=== PATIENT | male | born 1970 | race American Indian/Alaskan Native ===

== ENCOUNTER 2016-06-16 17:56 | Emergency (ER) | payer BC ==
[2016-06-16] MEDS ORDERED: TYLENOL #3 PO ONE (18:14)
[2016-06-16] MEDS ORDERED: NORCO 5/325 PO ONE (21:06)
[2016-06-16] MEDS ORDERED: MOTRIN PO ONE (21:07)
--- NOTE | 2016-06-16 21:09 | Emergency Department Report ---
ED Lower Extremity HPI - General Chief Complaint: Extremity Injury, Lower Stated Complaint: PAIN IN LEFT FOOT/POSS BROKEN Time Seen by Provider: 06/16/16 21:04 Source: patient Mode of arrival: Wheelchair Limitations: No Limitations - History of Present Illness Initial Comments: 46-year-old male past medical history none presents with complaint of pain in his left ankle heel and left lateral edge of foot. Patient states he was playing basketball jumped and fell on someone else's foot, inverted his left ankle. Occurred a few hours ago. Patient states he has difficulty walking due to pain. Patient pointing to a swelling left ankle, ankle visibly swollen. Patient states she also has pain at lateral edge of the left foot (near base of fifth metatarsal as per pts pointing to his foot). Denies any other injuries. MD Complaint: ankle injury, foot injury Onset/Timin -: hour(s) Injury: Ankle: Left, Foot: Left Type of Injury: inversion, other Place: street/outdoors (fall) Severity: moderate, severe Severity scale (0 -10): 8 Improves With: cold therapy, immobilization Worsens With: weight bearing, movement Context: fall, jumping Associated Symptoms: snap/pop sensation, swelling, unable to bear weight Treatments Prior to Arrival: cold therapy - Related Data Previous Rx's Medication Instructions Recorded Last Taken Type Naproxen [Naprosyn TAB] 500 mg PO BID PRN #20 tablet 06/16/16 Unknown Rx traMADol [Ultram 50 MG tab] 50 mg PO Q6HR PRN #20 tablet 06/16/16 Unknown Rx Allergies Allergy/AdvReac Type Severity Reaction Status Date / Time No Known Allergies Allergy Unverified 06/16/16 18:13 ED Review of Systems ROS: Stated complaint: PAIN IN LEFT FOOT/POSS BROKEN Other details as noted in HPI Constitutional: denies: chills, fever Eyes: denies: eye pain, eye discharge, vision change ENT: denies: ear pain, throat pain Respiratory: denies: cough, shortness of breath, wheezing Cardiovascular: denies: chest pain, palpitations Endocrine: no symptoms reported Gastrointestinal: denies: abdominal pain, nausea, diarrhea Genitourinary: denies: urgency, dysuria Musculoskeletal: denies: back pain, joint swelling, arthralgia Skin: denies: rash, lesions Neurological: denies: headache, weakness, paresthesias Psychiatric: denies: anxiety, depression Hematological/Lymphatic: denies: easy bleeding, easy bruising ED Past Medical Hx - Past Medical History Previous Medical History?: No - Surgical History Past Surgical History?: No - Social History Smoking Status: Light Tobacco Smoker Substance Use Type: Alcohol - Medications Home Medications: Home Medications Medication Instructions Recorded Confirmed Last Taken Type Naproxen [Naprosyn TAB] 500 mg PO BID PRN #20 tablet 06/16/16 Unknown Rx traMADol [Ultram 50 MG tab] 50 mg PO Q6HR PRN #20 tablet 06/16/16 Unknown Rx ED Physical Exam - General Limitations: No Limitations General appearance: alert, in no apparent distress - Head Head exam: Present: atraumatic, normocephalic - Eye Eye exam: Present: normal appearance, PERRL, EOMI - ENT ENT exam: Present: mucous membranes moist - Neck Neck exam: Present: normal inspection - Respiratory Respiratory exam: Present: normal lung sounds bilaterally. Absent: respiratory distress - Cardiovascular Cardiovascular Exam: Present: regular rate, normal rhythm. Absent: systolic murmur, diastolic murmur, rubs, gallop - GI/Abdominal GI/Abdominal exam: Present: soft, normal bowel sounds - Rectal Rectal exam: Present: deferred - Extremities Exam Extremities exam: Present: normal inspection - Expanded Lower Extremity Exam Left Upper Leg exam: Present: normal inspection, full ROM Knee exam: Present: normal inspection, full ROM Lower Leg exam: Present: normal inspection, full ROM Ankle exam: Present: tenderness, swelling, ecchymosis Foot/Toe exam: Present: tenderness (tenderness lateral aspect mid foot), swelling, ecchymosis Neuro vascular tendon exam: Present: no vascular compromise Gait: Positive: unable to bear weight 1 - Pain on palpation this region, visible swelling - Back Exam Back exam: Present: normal inspection - Neurological Exam Neurological exam: Present: alert, oriented X3, CN II-XII intact, abnormal gait - Psychiatric Psychiatric exam: Present: normal affect, agitated - Skin Skin exam: Present: warm, dry, intact, normal color. Absent: rash ED Course Vital Signs 06/16/16 18:05 Temperature 98.5 F Pulse Rate 96 H Respiratory 24 Rate Blood Pressure 132/82 O2 Sat by Pulse 100 Oximetry ED Lower Extremity MDM - Medical Decision Making A/P: Inversion ankle injury, ankle sprain 1-images reviewed with Dr. Downey, no evidence of acute fracture on images of ankle calcaneus or foot 2-patient placed in zoya wrap left ankel, bulky velázquez wrap, left ankle stirrup splint with orthopedic shoe, I provided him with crutches 3-naproxen, tramadol when necessary, RICE therapy 4-I advised patient to follow up with orthopedics at provided him with referral information. I explained to patient that he may have experienced small tendon injury and ankle due to result of inversion he should follow up with orthopedics as soon as possible. Critical care attestation.: If time is entered above; I have spent that time in minutes in the direct care of this critically ill patient, excluding procedure time. ED Disposition Clinical Impression: Left ankle sprain Qualifiers: Encounter type: initial encounter Involved ligament of ankle: tibiofibular ligament Qualified Code(s): S93.432A - Sprain of tibiofibular ligament of left ankle, initial encounter Disposition: DISCHARGED TO HOME OR SELFCARE Is pt being admited?: No Does the pt Need Aspirin: No Condition: Stable Instructions: Ankle Sprain (ED), Ankle Stirrup Splint (ED), Ankle Exercises ( GEN), RICE Therapy (ED) Prescriptions: Naproxen [Naprosyn TAB] 500 mg PO BID PRN #20 tablet PRN Reason: Pain traMADol [Ultram 50 MG tab] 50 mg PO Q6HR PRN #20 tablet PRN Reason: Pain Referrals: PRIMARY MD BOWEN [Primary Care Provider] - 3-5 Days [facility] [place] [Outside] - 3-5 Days BHARAT VALADEZ MD [Staff Physician] - 3-5 Days Forms: Work/School Release Form(ED), Accompanied Note Time of Disposition: 23:27
--- NOTE | 2016-06-16 23:43 | XRay Report ---
FINAL REPORT EXAM: XR CALCANEOUS 2 LT HISTORY: s/p fall TECHNIQUE: Frontal and lateral views of left calcaneus. PRIORS: None. FINDINGS: No apparent fracture, dislocation or obvious osseous destruction. Soft tissues grossly unremarkable. IMPRESSION: 1. No acute osseous abnormality.
[2016-06-16 23:47] VITALS: BP 155/96
--- NOTE | 2016-06-16 23:58 | XRay Report ---
FINAL REPORT EXAM: XR FOOT 3 LT HISTORY: FALL; LEFT FOOT PAIN TECHNIQUE: 3 views of left foot. PRIORS: None. FINDINGS: Moderate hallux valgus and mild soft tissue bunion formation over medial eminence of great toe metatarsal head. Joint spaces maintained. No apparent fracture or dislocation. Soft tissues grossly unremarkable. IMPRESSION: 1. No acute osseous abnormality.
--- NOTE | 2016-06-17 | XRay Report ---
FINAL REPORT EXAM: XR ANKLE 2V LT HISTORY: Injury with edema pain TECHNIQUE: 2 views of left ankle. PRIORS: None. FINDINGS: Joint spaces maintained. No apparent fracture or dislocation.Very mild, lateral soft tissue edema and possible effusion projects over the anterior tibiotalar joint. IMPRESSION: 1. No acute osseous abnormality. 2. Soft tissue edema and possible tibiotalar joint effusion.
== END 2016-06-16 23:29 | disposition home or self-care (01) ==
LOC: EDBD → ED 17:56
DX: S93.432A Sprain of tibiofibular ligament of left ankle, initial encounter (principal); Z72.0 Tobacco use; W01.10XA Fall on same level from slipping, tripping and stumbling with subsequent striking against unspecified object, initial encounter; Y93.67 Activity, basketball; Y99.9 Unspecified external cause status; Y92.39 Other specified sports and athletic area as the place of occurrence of the external cause

== ENCOUNTER 2017-03-28 12:18 | Emergency (ER) | payer BC ==
[2017-03-28 12:32] VITALS: BP 141/87
--- NOTE | 2017-03-28 16:02 | Emergency Department Report ---
ED Rash HPI - HPI Chief Complaint: Skin Rash Stated Complaint: RASH Time Seen by Provider: 03/28/17 15:36 Duration: 2 Days Location: Head, Neck, Chest Suspected Cause: Unknown Rash Symptoms: No Itching, No Facial Swelling, No Tongue/Oral Swelling, No Breathing Difficulties, No Choking Sensation, No Wheezing/Dyspnea, No Peeling, No Blistering, No Fever, No Lightheaded, No Malaise, No Myalgias Severity: moderate (tingling pain 2/10) Other History: Patient reports that E has rash to the left back of his head, left side of his neck and left anterior chest and back area. He denies using any new products to include perfume, soap, medication or food. Denies any itching. It stated on triage note this patient has been having symptoms for one week but patient said that it started on Wednesday which was 2 days ago. He reports that is painful at 20/10 and tingly. Denies any pain proceeded rash outbreak. Denies any respiratory symptoms or fever or chills. Denies any difficulty swallowing or swelling of tongue or neck. Tetanus vaccine is up-to- date. Patient had chickenpox as a child. ED Review of Systems ROS: Stated complaint: RASH Other details as noted in HPI Comment: All other systems reviewed and negative Constitutional: no symptoms reported ENT: denies: throat pain, congestion Respiratory: no symptoms reported Cardiovascular: denies: chest pain, palpitations, dyspnea on exertion, orthopnea , edema, syncope, paroxysmal nocturnal dyspnea Musculoskeletal: denies: back pain, joint swelling, arthralgia, myalgia Skin: rash. denies: pruritus Neurological: denies: headache, weakness, numbness, paresthesias, confusion, abnormal gait, vertigo ED Past Medical Hx - Past Medical History Previous Medical History?: No - Surgical History Past Surgical History?: No - Family History Family history: no significant - Social History Smoking Status: Current Every Day Smoker Substance Use Type: Alcohol - Medications Home Medications: Home Medications Medication Instructions Recorded Confirmed Last Taken Type Naproxen [Naprosyn TAB] 500 mg PO BID PRN #20 tablet 06/16/16 Unknown Rx traMADol [Ultram 50 MG tab] 50 mg PO Q6HR PRN #20 tablet 06/16/16 Unknown Rx Acyclovir 800 mg PO Q8H #21 tablet 03/28/17 Unknown Rx Ibuprofen [Motrin] 600 mg PO Q8H PRN #15 tablet 03/28/17 Unknown Rx Rash Exam - Exam General: Vital signs noted. No distress. Alert and acting appropriately. This is a 47-year-old male well-nourished well-developed in no acute distress HEENT: No Periorbital Edema, No Conjuctival Injection, No Chemosis, No Perioral Edema, No Tongue Edema, No Uvular Edema, No Compromised Airway, No Drooling Lungs: Yes Good Air Exchange, No Wheezes, No Ronchi, No Stridor, No Cough, No Labored Respirations, No Retractions, No Use of Accessory Muscles, No Other Abnormal Lung Sounds Heart: Yes Regular, No Murmur Skin: Yes Erythema (erythema vesicular, group rash noted in clusters to posterior left neck, left occipital area, left shoulder, left anterior and posterior thorax.), No Urticarial Rash, No Maculopapular Rash, No Morbilliform rash, No Bulla(e), No Excoriations, No Weeping, No Tenderness, No Edema, No Encrustations, No Other Other: Positive: Abdomen Normal, Neurologic Normal, Musculoskeletal Normal ED Course Vital Signs 03/28/17 12:29 Temperature 98.1 F Pulse Rate 69 Respiratory 14 Rate Blood Pressure 141/87 O2 Sat by Pulse 100 Oximetry - Reevaluation(s) Reevaluation #1: 03/28/17 16:43 stable throughout ED stay ED Medical Decision Making - Medical Decision Making ED course: This is a 47-year-old male well-nourished well-developed in no acute distress. Patient's ear for complaint of rash that is painful and described as stinging and burning in times today. Physical findings for herpes zoster. I explained to patient diagnosis and treatment plan and he voiced understanding. I also explained to patient that this rash is contagious so he needs to practice proper hand hygiene and to avoid being around individual, elderly individual and children less than 8 years old. Patient denies any medical problems except for bronchitis. He denies any autoimmune problems. I discussed the patient that he'll need to follow-up with a information strategist in 2-3 days. Discharged home in stable condition with prescription for Motrin and acyclovir Critical care attestation.: If time is entered above; I have spent that time in minutes in the direct care of this critically ill patient, excluding procedure time. ED Disposition Clinical Impression: Shingles rash Qualifiers: Herpes zoster complications: without complications Qualified Code(s): B02.9 - Zoster without complications Disposition: TO HOME OR SELFCARE Is pt being admited?: No Does the pt Need Aspirin: No Condition: Stable Instructions: Herpes Zoster (ED) Additional Instructions: You considered contagious until your rash are dried and redness is subsided Keep affected areas clean and dry Take medication as prescribed Prescriptions: Acyclovir 800 mg PO Q8H #21 tablet Ibuprofen [Motrin] 600 mg PO Q8H PRN #15 tablet PRN Reason: Pain Referrals: [facility] [Outside] - 2-3 Days PRIMARY CAREMD [Primary Care Provider] - 2-3 Days RONA ESCAMILLA MD [Staff Physician] - 2-3 Days Forms: Work/School Release Form(ED)
== END 2017-03-28 16:00 | disposition home or self-care (01) ==
LOC: ED 12:18
DX: B02.9 Zoster without complications (principal); F17.200 Nicotine dependence, unspecified, uncomplicated
CPT/HCPCS: 99282

== ENCOUNTER 2021-05-24 01:06 | Emergency (ER) | payer SELFPAY ==
--- NOTE | 2021-05-24 06:52 | Emergency Department Report ---
Minor Respiratory - HPI Chief Complaint: Upper Respiratory Infection Stated Complaint: SINUS INFECTION Time Seen by Provider: 05/24/21 06:39 Duration: 2 weeks Pain Location: Facial Severity: moderate Minor Respiratory: Yes Rhinorrhea, Yes Able to Tolerate Fluids, No Sore Throat, No Ear Pain, No Cough, No Sick Contacts, No Hemoptysis, No Chest Pain, No Shortness of Breath, No Fever Other History: Chief complaint: "Tension around my eye, my eye is running". HPI: This is a 51-year-old male with history of tobacco dependence who presents with tension around his left eye facial pressure nasal congestion for 2 weeks. Moderately severe symptoms. He has nasal congestion and eye discharge. Facial pressure in his left cheek and left forehead. No fever. No cough. Constant tension pressure sensation. Worse with palpation of his forehead and cheek on the left side. ED Review of Systems ROS: Stated complaint: SINUS INFECTION Other details as noted in HPI Constitutional: denies: fever, malaise ENT: dental pain, congestion. denies: throat pain Respiratory: denies: cough, shortness of breath Cardiovascular: denies: chest pain Gastrointestinal: denies: abdominal pain, nausea, vomiting ED Past Medical Hx - Past Medical History Previous Medical History?: No - Surgical History Past Surgical History?: No - Social History Smoking Status: Current Every Day Smoker Substance Use Type: Alcohol - Medications Home Medications: Home Medications Medication Instructions Recorded Confirmed Last Taken Type Naproxen [Naprosyn TAB] 500 mg PO BID PRN #20 tablet 06/16/16 Unknown Rx traMADoL [Ultram 50 MG tab] 50 mg PO Q6HR PRN #20 tablet 06/16/16 Unknown Rx Acyclovir 800 mg PO Q8H #21 tablet 03/28/17 Unknown Rx Ibuprofen [Motrin] 600 mg PO Q8H PRN #15 tablet 03/28/17 Unknown Rx Amoxicillin/Potassium Clav 1 each PO BID 10 Days #20 tablet 05/24/21 Unknown Rx [Augmentin 875-125 Tablet] Loratadine 10 mg PO DAILY 10 Days #10 capsule 05/24/21 Unknown Rx Minor Respiratory Exam - Exam General: Vital signs noted. No distress. Alert and acting appropriately. Left maxillary, left forehead tenderness upon palpation HEENT: Yes Moist Mucous Membranes, Yes Rhinorrhea, Yes Conjuctival Injection (Mild left eye conjunctival injection), No Pharyngeal Erythema, No Pharyngeal Exudates Lungs: Yes Good Air Exchange, No Wheezes, No Ronchi, No Stridor Heart: Yes Regular, No Murmur Neurologic: Alert and oriented, no deficits. Musculoskeletal: Unremarkable. ED Course Vital Signs 05/24/21 01:12 Temperature 98.0 F Pulse Rate 93 H Respiratory 18 Rate Blood Pressure 144/92 O2 Sat by Pulse 100 Oximetry ED Medical Decision Making - Medical Decision Making Acute sinusitis: Due to duration of symptoms and severity antibiotics are indicated. Augmentin 10-day prescription provided. Loratadine also prescribed Critical care attestation.: If time is entered above; I have spent that time in minutes in the direct care of this critically ill patient, excluding procedure time. ED Disposition Clinical Impression: Acute sinusitis Disposition: HOME / SELF CARE / HOMELESS Is pt being admited?: No Does the pt Need Aspirin: No Condition: Stable Instructions: Sinusitis, Adult, [id number] Prescriptions: Amoxicillin/Potassium Clav [Augmentin 875-125 Tablet] 1 each PO BID 10 Days #20 tablet Loratadine 10 mg PO DAILY 10 Days #10 capsule Referrals: ANDREINA BRIDGES MD [Staff Physician] - as needed
[2021-05-24 07:10] VITALS: BP 138/88
== END 2021-05-24 07:10 | disposition home or self-care (01) ==
LOC: ED 01:06
DX: J01.90 Acute sinusitis, unspecified (principal)
CPT/HCPCS: 99282

== ENCOUNTER 2021-07-15 13:25 | Inpatient (IN) | payer SELFPAY ==
[2021-07-15] MEDS ORDERED: ONDANSETRON 4 MG/2 ML INJ IV ONE (14:02)
[2021-07-15] MEDS ORDERED: CLINDAMYCIN 600 MG/50 mL 600 MG/50 ML BAG IV ONE (14:03)
--- NOTE | 2021-07-15 14:04 | Emergency Department Report ---
ED General Adult HPI - General Chief complaint: Alcohol Stated complaint: GENERAL SICKNESS Time Seen by Provider: 07/15/21 13:37 Source: patient, EMS Mode of arrival: Ambulatory Limitations: No Limitations - History of Present Illness Initial comments: 51-year-old male with no significant past medical history presents to the hospital complaining of generalized weakness and difficulty ambulating for the past week and a half. Patient also complains of difficulty breathing secondary to nasal congestion and feeling stopped up with pain to the left side. Patient also has poor dentition and tooth ache resulting in decreased p.o. intake. He also has some nausea and pain with p.o. intake and suspects he is dehydrated. He denies vomiting, fever, cough, chest congestion or shortness of breath. He also has a right red eye for the past 1 month and saw an laborer tin can 1 week ago but does not have a specific diagnosis. Patient states he stopped drinking 2 months ago and is not currently drinking alcohol. He is not currently taking any medications. EMS reports a blood glucose of 65 and a heart rate of 136 at his house prior to arrival - Related Data Previous Rx's Medication Instructions Recorded Last Taken Type Naproxen [Naprosyn TAB] 500 mg PO BID PRN #20 tablet 06/16/16 Unknown Rx traMADoL [Ultram 50 MG tab] 50 mg PO Q6HR PRN #20 tablet 06/16/16 Unknown Rx Acyclovir 800 mg PO Q8H #21 tablet 03/28/17 Unknown Rx Ibuprofen [Motrin] 600 mg PO Q8H PRN #15 tablet 03/28/17 Unknown Rx Amoxicillin/Potassium Clav 1 each PO BID 10 Days #20 tablet 05/24/21 Unknown Rx [Augmentin 875-125 Tablet] Loratadine 10 mg PO DAILY 10 Days #10 capsule 05/24/21 Unknown Rx Allergies Allergy/AdvReac Type Severity Reaction Status Date / Time No Known Allergies Allergy Unverified 06/16/16 18:13 ED Review of Systems ROS: Stated complaint: GENERAL SICKNESS Other details as noted in HPI Comment: All other systems reviewed and negative ED Past Medical Hx - Social History Smoking Status: Current Every Day Smoker Substance Use Type: Alcohol - Medications Home Medications: Home Medications Medication Instructions Recorded Confirmed Last Taken Type Naproxen [Naprosyn TAB] 500 mg PO BID PRN #20 tablet 06/16/16 Unknown Rx traMADoL [Ultram 50 MG tab] 50 mg PO Q6HR PRN #20 tablet 06/16/16 Unknown Rx Acyclovir 800 mg PO Q8H #21 tablet 03/28/17 Unknown Rx Ibuprofen [Motrin] 600 mg PO Q8H PRN #15 tablet 03/28/17 Unknown Rx Amoxicillin/Potassium Clav 1 each PO BID 10 Days #20 tablet 05/24/21 Unknown Rx [Augmentin 875-125 Tablet] Loratadine 10 mg PO DAILY 10 Days #10 capsule 05/24/21 Unknown Rx ED Physical Exam - General Limitations: No Limitations - Other Other exam information: General: No acute distress Head: Atraumatic Eyes: Right conjunctival redness with reactive and equal pupils. Extraocular movements intact ENT: Poor dentition with dental caries and gum infection to left mandibular gingiva Neck: Normal appearance, no midline tenderness Chest: Clear to auscultation bilaterally CV: Tachycardic in the 120s to 130s, regular rhythm Abdomen: Soft, normal bowel sounds, nontender, nondistended, no rebound or g uarding Back: Normal inspection Extremity: Normal inspection, full range of motion Neuro: Alert O x 3, no facial asymmetry, speech clear, no gross motor sensory deficit Psych: Appropriate behavior Skin: No rash ED Course Vital Signs 07/15/21 07/15/21 07/15/21 13:29 17:16 17:31 Temperature 98 F Pulse Rate 149 H 133 H Respiratory 16 Rate Blood Pressure Blood Pressure 123/93 [Left] O2 Sat by Pulse 100 98 97 Oximetry 07/15/21 07/15/21 07/15/21 17:45 18:01 18:15 Temperature Pulse Rate 133 H 154 H 136 H Respiratory 15 23 16 Rate Blood Pressure Blood Pressure [Left] O2 Sat by Pulse 97 96 99 Oximetry 07/15/21 07/15/21 07/15/21 18:31 18:45 19:01 Temperature Pulse Rate 139 H 138 H 147 H Respiratory 15 18 14 Rate Blood Pressure Blood Pressure [Left] O2 Sat by Pulse 99 98 98 Oximetry 07/15/21 07/15/21 07/15/21 19:15 19:31 19:37 Temperature 102.9 F H Pulse Rate 141 H 138 H Respiratory 16 16 Rate Blood Pressure 109/70 Blood Pressure [Left] O2 Sat by Pulse 97 98 Oximetry ED Medical Decision Making - Lab Data Result diagrams: 07/15/21 15:09 07/15/21 15:09 Lab Results 07/15/21 07/15/21 07/15/21 Range/Units 15:09 15:09 15:09 WBC 7.1 (4.5-11.0) K/mm3 RBC 4.10 (3.65-5.03) M/mm3 Hgb 12.7 (11.8-15.2) gm/dl Hct 38.0 (35.5-45.6) % MCV 93 (84-94) fl MCH 31 (28-32) pg MCHC 33 (32-34) % RDW 12.6 L (13.2-15.2) % Plt Count 430 (140-440) K/mm3 Lymph % (Auto) 10.8 L (13.4-35.0) % [place] % (Auto) 4.0 (0.0-7.3) % Eos % (Auto) 0.5 (0.0-4.3) % Baso % (Auto) 0.6 (0.0-1.8) % Lymph # (Auto) 0.8 L (1.2-5.4) K/mm3 [place] # (Auto) 0.3 (0.0-0.8) K/mm3 Eos # (Auto) 0.0 (0.0-0.4) K/mm3 Baso # (Auto) 0.0 (0.0-0.1) K/mm3 Seg Neutrophils % 84.1 H (40.0-70.0) % Seg Neutrophils # 6.0 (1.8-7.7) K/mm3 Sodium 130 L (137-145) mmol/L Potassium 5.7 H (3.6-5.0) mmol/L Chloride 92.2 L (98-107) mmol/L Carbon Dioxide 24 (22-30) mmol/L Anion Gap 20 mmol/L BUN 30 H (9-20) mg/dL Creatinine 1.2 (0.8-1.3) mg/dL Estimated GFR > 60 ml/min BUN/Creatinine Ratio 25 % Glucose 82 (75-100) mg/dL POC Glucose (70-105) mg/dL Lactic Acid (0.7-2.0) mmol/L Calcium 8.7 (8.4-10.2) mg/dL Magnesium 2.40 H (1.7-2.3) mg/dL Total Bilirubin 0.20 (0.1-1.2) mg/dL AST 43 H (5-40) units/L ALT 15 (7-56) units/L Alkaline Phosphatase 77 (35-129) units/L Total Protein 8.1 (6.3-8.2) g/dL Albumin 3.1 L (3.9-5) g/dL Albumin/Globulin Ratio 0.6 % Lipase 27 (13-60) units/L TSH (0.270-4.200) mlU/mL Free T4 (0.76-1.46) ng/dL Urine Color (Yellow) Urine Turbidity (Clear) Urine pH (5.0-7.0) Ur Specific [place] (1.003-1.030) Urine Protein (Negative) mg/dL Urine Glucose (UA) (Negative) mg/dL Urine Ketones (Negative) mg/dL Urine Blood (Negative) Urine Nitrite (Negative) Ur Reducing Substances Urine Bilirubin (Negative) Urine Ictotest Urine Urobilinogen (<2.0) mg/dL Ur Leukocyte Esterase (Negative) Urine WBC (Auto) (0.0-6.0) /HPF Urine RBC (Auto) (0.0-6.0) /HPF Urine Mucus /HPF Urine Opiates Screen Urine Methadone Screen Ur Barbiturates Screen Ur Phencyclidine Scrn Ur Amphetamines Screen U Benzodiazepines Scrn Urine Cocaine Screen U Marijuana (THC) Screen Drugs of Abuse Note Plasma/Serum Alcohol < 0.01 (0-0.07) % 07/15/21 07/15/21 07/15/21 Range/Units 15:09 19:35 19:36 WBC (4.5-11.0) K/mm3 RBC (3.65-5.03) M/mm3 Hgb (11.8-15.2) gm/dl Hct (35.5-45.6) % MCV (84-94) fl MCH (28-32) pg MCHC (32-34) % RDW (13.2-15.2) % Plt Count (140-440) K/mm3 Lymph % (Auto) (13.4-35.0) % [place] % (Auto) (0.0-7.3) % Eos % (Auto) (0.0-4.3) % Baso % (Auto) (0.0-1.8) % Lymph # (Auto) (1.2-5.4) K/mm3 [place] # (Auto) (0.0-0.8) K/mm3 Eos # (Auto) (0.0-0.4) K/mm3 Baso # (Auto) (0.0-0.1) K/mm3 Seg Neutrophils % (40.0-70.0) % Seg Neutrophils # (1.8-7.7) K/mm3 Sodium (137-145) mmol/L Potassium (3.6-5.0) mmol/L Chloride (98-107) mmol/L Carbon Dioxide (22-30) mmol/L Anion Gap mmol/L BUN (9-20) mg/dL Creatinine (0.8-1.3) mg/dL Estimated GFR ml/min BUN/Creatinine Ratio % Glucose (75-100) mg/dL POC Glucose (70-105) mg/dL Lactic Acid 1.40 (0.7-2.0) mmol/L Calcium (8.4-10.2) mg/dL Magnesium (1.7-2.3) mg/dL Total Bilirubin (0.1-1.2) mg/dL AST (5-40) units/L ALT (7-56) units/L Alkaline Phosphatase (35-129) units/L Total Protein (6.3-8.2) g/dL Albumin (3.9-5) g/dL Albumin/Globulin Ratio % Lipase (13-60) units/L TSH 1.090 (0.270-4.200) mlU/mL Free T4 0.98 (0.76-1.46) ng/dL Urine Color Yellow (Yellow) Urine Turbidity Clear (Clear) Urine pH 6.0 (5.0-7.0) Ur Specific [place] 1.010 (1.003-1.030) Urine Protein 30 mg/dl (Negative) mg/dL Urine Glucose (UA) Negative (Negative) mg/dL Urine Ketones Negative (Negative) mg/dL Urine Blood Negative (Negative) Urine Nitrite Negative (Negative) Ur Reducing Substances Not Reportable Urine Bilirubin Negative (Negative) Urine Ictotest Not Reportable Urine Urobilinogen < 2.0 (<2.0) mg/dL Ur Leukocyte Esterase Negative (Negative) Urine WBC (Auto) 9.0 H (0.0-6.0) /HPF Urine RBC (Auto) 3.0 (0.0-6.0) /HPF Urine Mucus Few /HPF Urine Opiates Screen Urine Methadone Screen Ur Barbiturates Screen Ur Phencyclidine Scrn Ur Amphetamines Screen U Benzodiazepines Scrn Urine Cocaine Screen U Marijuana (THC) Screen Drugs of Abuse Note Plasma/Serum Alcohol (0-0.07) % 07/15/21 07/15/21 Range/Units 19:36 19:41 WBC (4.5-11.0) K/mm3 RBC (3.65-5.03) M/mm3 Hgb (11.8-15.2) gm/dl Hct (35.5-45.6) % MCV (84-94) fl MCH (28-32) pg MCHC (32-34) % RDW (13.2-15.2) % Plt Count (140-440) K/mm3 Lymph % (Auto) (13.4-35.0) % [place] % (Auto) (0.0-7.3) % Eos % (Auto) (0.0-4.3) % Baso % (Auto) (0.0-1.8) % Lymph # (Auto) (1.2-5.4) K/mm3 [place] # (Auto) (0.0-0.8) K/mm3 Eos # (Auto) (0.0-0.4) K/mm3 Baso # (Auto) (0.0-0.1) K/mm3 Seg Neutrophils % (40.0-70.0) % Seg Neutrophils # (1.8-7.7) K/mm3 Sodium (137-145) mmol/L Potassium (3.6-5.0) mmol/L Chloride (98-107) mmol/L Carbon Dioxide (22-30) mmol/L Anion Gap mmol/L BUN (9-20) mg/dL Creatinine (0.8-1.3) mg/dL Estimated GFR ml/min BUN/Creatinine Ratio % Glucose (75-100) mg/dL POC Glucose 66 L (70-105) mg/dL Lactic Acid (0.7-2.0) mmol/L Calcium (8.4-10.2) mg/dL Magnesium (1.7-2.3) mg/dL Total Bilirubin (0.1-1.2) mg/dL AST (5-40) units/L ALT (7-56) units/L Alkaline Phosphatase (35-129) units/L Total Protein (6.3-8.2) g/dL Albumin (3.9-5) g/dL Albumin/Globulin Ratio % Lipase (13-60) units/L TSH (0.270-4.200) mlU/mL Free T4 (0.76-1.46) ng/dL Urine Color (Yellow) Urine Turbidity (Clear) Urine pH (5.0-7.0) Ur Specific [place] (1.003-1.030) Urine Protein (Negative) mg/dL Urine Glucose (UA) (Negative) mg/dL Urine Ketones (Negative) mg/dL Urine Blood (Negative) Urine Nitrite (Negative) Ur Reducing Substances Urine Bilirubin (Negative) Urine Ictotest Urine Urobilinogen (<2.0) mg/dL Ur Leukocyte Esterase (Negative) Urine WBC (Auto) (0.0-6.0) /HPF Urine RBC (Auto) (0.0-6.0) /HPF Urine Mucus /HPF Urine Opiates Screen Negative Urine Methadone Screen Negative Ur Barbiturates Screen Negative Ur Phencyclidine Scrn Negative Ur Amphetamines Screen Negative U Benzodiazepines Scrn Negative Urine Cocaine Screen Negative U Marijuana (THC) Screen Negative Drugs of Abuse Note Disclamer Plasma/Serum Alcohol (0-0.07) % - EKG Data -: EKG Interpreted by Ut EKG shows normal: sinus rhythm, ST-T waves (NO STEMI) Rate: tachycardia (136) - Radiology Data Radiology results: report reviewed CHEST 1 VIEW 07/15/2021 1:42 PM INDICATION / CLINICAL INFORMATION: tachycarida, possible covid exposure. COMPARISON: None available. FINDINGS: SUPPORT DEVICES: None. HEART / MEDIASTINUM: No significant abnormality. LUNGS / PLEURA: No significant pulmonary or pleural abnormality. No pneumothorax. ADDITIONAL FINDINGS: No significant additional findings. IMPRESSION: 1. No acute findings. - Medical Decision Making 51-year-old male presents to the hospital with tachycardia initially without fever. Dehydration suspected given BUN to creatinine ratio. Despite aggressive IV fluid hydration patient remained tachycardic and subsequently developed a fever. Chest x-ray unremarkable. Patient's abdomen is nontender and soft. Patient does appear to have a dental infection. Patient has significant tachycardia out of proportion with fever. Thyroid is normal. Patient will be admitted to hospital service for further work-up and evaluation. My hyperkalemia noted and patient bided p.o. juice for mild hyperglycemia Patient is nontoxic-appearing, heart rate had improved with ED treatment. Silvia ent mid to the hospital service for further treatment and evaluation Critical Care Time: No Critical care attestation.: If time is entered above; I have spent that time in minutes in the direct care of this critically ill patient, excluding procedure time. ED Disposition Clinical Impression: Sepsis, Sinus tachycardia, Dental infection, Dehydration Disposition: ADMITTED INPATIENT Is pt being admited?: Yes Does the pt Need Aspirin: No Condition: Stable Time of Disposition: 21:46
[2021-07-15] MEDS ORDERED: SODIUM CHLORIDE 0.9% 1000 ML 1,000 ML IV ONE ×2 (14:06→16:31)
--- NOTE | 2021-07-15 14:54 | XRay Report ---
CHEST 1 VIEW 07/15/2021 1:42 PM INDICATION / CLINICAL INFORMATION: tachycarida, possible covid exposure. COMPARISON: None available. FINDINGS: SUPPORT DEVICES: None. HEART / MEDIASTINUM: No significant abnormality. LUNGS / PLEURA: No significant pulmonary or pleural abnormality. No pneumothorax. ADDITIONAL FINDINGS: No significant additional findings. IMPRESSION: 1. No acute findings. Signer Name: Leonard Schwartz MD Signed: 07/15/2021 2:50 PM Workstation Name: [facility]
[2021-07-15] MEDS ORDERED: D5W/0.9% NACL 1,000 ML IV SCH ×2 (15:00→23:00)
[2021-07-15 15:21] LABS: Basophils % (Auto) 0.6 % (0.0-1.8); Eosinophils % (Auto) 0.5 % (0.0-4.3); Hemoglobin 12.7 gm/dl (11.8-15.2); Lymphocytes # (Auto) 0.8 K/mm3 (1.2-5.4); Lymphocytes % (Auto) 10.8 % (13.4-35.0); Mean Corpuscular HGB Conc 33 % (32-34); Mean Corpuscular Volume 93 fl (84-94); Monocytes # (Auto) 0.3 K/mm3 (0.0-0.8); Platelet Count 430 K/mm3 (140-440); Red Cell Distribution Width 12.6 % (13.2-15.2)
[2021-07-15 15:50] LABS: Free T4 (Free Thyroxine) 0.98 ng/dL (0.76-1.46)
[2021-07-15 16:07] LABS: Alanine Aminotransferase 15 units/L (7-56); Albumin 3.1 g/dL (3.9-5); BUN/Creatinine Ratio 25; Blood Urea Nitrogen 30 mg/dL (9-20)
[2021-07-15 16:21] LABS: Calcium 8.7 mg/dL (8.4-10.2); Hemolysis Index 13
[2021-07-15] MEDS ORDERED: ACETAMINOPHEN 500 MG TAB PO ONE ×2 (19:27→21:34)
[2021-07-15 20:36] LABS: Amphetamine Screen,Urine Negative; Benzodiazepines Screen,Urine Negative; Cannabinoid Screen,Urine Negative; Cocaine Screen,Urine Negative; Methadone Screen,Urine Negative; Opiate Screen,Urine Negative
[2021-07-15 20:57] LABS: Mucus,Urine FEW /HPF
[2021-07-15 20:59] LABS: Bilirubin,Urine Negative (Negative); Blood,Urine Negative (Negative); Color,Urine Yellow (Yellow); Urobilinogen,Urine < 2.0 mg/dL (<2.0)
[2021-07-15] MEDS ORDERED: HYDROmorphone 1 MG/1 ML INJ IV PRN (22:04)
[2021-07-15] MEDS ORDERED: ONDANSETRON 4 MG/2 ML INJ IV PRN (22:04)
[2021-07-15] MEDS ORDERED: ACETAMINOPHEN 325 MG TAB PO PRN (22:04)
[2021-07-15] MEDS ORDERED: ALBUTEROL 2.5 MG/3 ML NEBU IH PRN (22:04)
[2021-07-15] MEDS ORDERED: MORPHINE 2 MG/1 ML INJ IV PRN (22:04)
--- NOTE | 2021-07-15 22:15 | History and Physical Report ---
History of Present Illness Date of examination: 07/15/21 Date of admission: 07/15/21 Chief complaint: Fever Weakness History of present illness: 51-year-old male with history of tobacco abuse and alcohol abuse was brought to the emergency room because of generalized weakness and difficulty ambulating for the past week and a half. Patient also complains of difficulty breathing secondary to nasal congestion . Patient also has poor dentition and tooth ache resulting in decreased p.o. intake. He also has some nausea and pain with p.o. intake and suspects he is dehydrated. He denies vomiting, fever, cough, chest congestion or shortness of breath. He also has a right red eye for the past 1 month and saw an assembler wire mesh gate 1 week ago but does not have a specific d iagnosis. Patient states he stopped drinking 2 months ago and is not currently drinking alcohol. He is not currently taking any medications. EMS reports a blood glucose of 65 and a heart rate of 136 at his house prior to arrival In the emergency room patient is found to have fever of 102.9, BUN up 30 creatinine 1.2, lactic acid 1.40 potassium 5.7 chest x-ray shows no acute finding.Dehydration suspected given BUN to creatinine ratio. Despite aggressive IV fluid hydration patient remained tachycardic and subsequently developed a fever. Chest x-ray unremarkable. Patient's abdomen is nontender and soft. Patient does appear to have a dental infection. Patient has significant tachycardia out of proportion with fever. Thyroid is normal. Patient will be admitted to hospital service for further work-up and evaluation. Past History Past Medical History: other (Tobacco abuse alcohol abuse) Medications and Allergies Allergies Allergy/AdvReac Type Severity Reaction Status Date / Time No Known Allergies Allergy Unverified 06/16/16 18:13 Home Medications Medication Instructions Recorded Confirmed Last Taken Type Naproxen [Naprosyn TAB] 500 mg PO BID PRN #20 tablet 06/16/16 Unknown Rx traMADoL [Ultram 50 MG tab] 50 mg PO Q6HR PRN #20 tablet 06/16/16 Unknown Rx Acyclovir 800 mg PO Q8H #21 tablet 03/28/17 Unknown Rx Ibuprofen [Motrin] 600 mg PO Q8H PRN #15 tablet 03/28/17 Unknown Rx Amoxicillin/Potassium Clav 1 each PO BID 10 Days #20 tablet 05/24/21 Unknown Rx [Augmentin 875-125 Tablet] Loratadine 10 mg PO DAILY 10 Days #10 capsule 05/24/21 Unknown Rx Active Meds: Active Medications Acetaminophen (Acetaminophen 325 Mg Tab) 650 mg PO Q4H PRN PRN Reason: Pain MILD(1-3)/Fever >100.5/NESBITT Albuterol (Albuterol 2.5 Mg/3 Ml Nebu) 2.5 mg IH Q3HRT PRN PRN Reason: Shortness Of Breath Albuterol/Ipratropium (Ipratropium/Albuterol Sulfate 3 Ml Ampul.Neb) 1 ampul IH Q6HRT ASHLEY Famotidine (Famotidine 20 Mg/2 Ml Inj) 20 mg IV BID ASHLEY Heparin Sodium (Porcine) (Heparin 5,000 Unit/1 Ml Vial) 5,000 unit SUB-Q Q12HR ASHLEY Hydromorphone HCl (Hydromorphone 1 Mg/1 Ml Inj) 0.5 mg IV Q3H PRN PRN Reason: Pain , Severe (7-10) Dextrose/Sodium Chloride (D5ns) 1,000 mls @ 999 mls/hr IV DIRECT ASHLEY Last Admin: 07/15/21 15:05 Dose: 999 mls/hr Dextrose/Sodium Chloride (D5ns) 1,000 mls @ 125 mls/hr IV DIRECT ASHLEY Clindamycin HCl (Cleocin 600 Mg/50 Ml) 600 mg in 50 mls @ 100 mls/hr IV Q8H ASHLEY; Protocol Morphine Sulfate (Morphine 2 Mg/1 Ml Inj) 2 mg IV Q4H PRN PRN Reason: Pain, Moderate (4-6) Ondansetron HCl (Ondansetron 4 Mg/2 Ml Inj) 4 mg IV Q8H PRN PRN Reason: Nausea And Vomiting Sodium Chloride (Sodium Chloride 0.9% 10 Ml Flush Syringe) 10 ml IV BID ASHLEY Sodium Chloride (Sodium Chloride 0.9% 10 Ml Flush Syringe) 10 ml IV PRN PRN PRN Reason: LINE FLUSH Review of Systems All systems: negative Constitutional: fever, weakness, malaise, lethargy, other (Dental infection) Ears, nose, mouth and throat: dental pain Musculoskeletal: other (Difficulty ambulating) Exam - Constitutional Vitals: Temp Pulse Resp BP Pulse Ox 102.9 F H 145 H 17 102/65 99 07/15/21 19:37 07/15/21 22:01 07/15/21 22:01 07/15/21 22:01 07/15/21 22:01 General appearance: Present: mild distress, cachectic - EENT Eyes: Present: PERRL ENT: hearing intact, clear oral mucosa - Neck Neck: Present: supple, normal ROM - Respiratory Respiratory effort: normal Respiratory: bilateral: diminished - Cardiovascular Heart Sounds: Present: S1 & S2. Absent: rub, click - Extremities Extremities: pulses symmetrical, No edema Peripheral Pulses: within normal limits - Abdominal General gastrointestinal: Present: soft, non-tender, non-distended, normal bowel sounds Male genitourinary: Present: normal - Integumentary Integumentary: Present: clear, warm, dry - Musculoskeletal Musculoskeletal: gait normal, strength equal bilaterally - Psychiatric Psychiatric: other (Patient is lethargic) - Neurologic Neurologic: CNII-XII intact, moves all extremities, other (Patient is lethargic) Results - Labs CBC & Chem 7: 07/15/21 15:09 07/15/21 15:09 Labs: Laboratory Last Values WBC 7.1 K/mm3 (4.5-11.0) 07/15/21 15:09 RBC 4.10 M/mm3 (3.65-5.03) 07/15/21 15:09 Hgb 12.7 gm/dl (11.8-15.2) 07/15/21 15:09 Hct 38.0 % (35.5-45.6) 07/15/21 15:09 MCV 93 fl (84-94) 07/15/21 15:09 MCH 31 pg (28-32) 07/15/21 15:09 MCHC 33 % (32-34) 07/15/21 15:09 RDW 12.6 % (13.2-15.2) L 07/15/21 15:09 Plt Count 430 K/mm3 (140-440) 07/15/21 15:09 Lymph % (Auto) 10.8 % (13.4-35.0) L 07/15/21 15:09 [place] % (Auto) 4.0 % (0.0-7.3) 07/15/21 15:09 Eos % (Auto) 0.5 % (0.0-4.3) 07/15/21 15:09 Baso % (Auto) 0.6 % (0.0-1.8) 07/15/21 15:09 Lymph # (Auto) 0.8 K/mm3 (1.2-5.4) L 07/15/21 15:09 [place] # (Auto) 0.3 K/mm3 (0.0-0.8) 07/15/21 15:09 Eos # (Auto) 0.0 K/mm3 (0.0-0.4) 07/15/21 15:09 Baso # (Auto) 0.0 K/mm3 (0.0-0.1) 07/15/21 15:09 Seg Neutrophils % 84.1 % (40.0-70.0) H 07/15/21 15:09 Seg Neutrophils # 6.0 K/mm3 (1.8-7.7) 07/15/21 15:09 Sodium 130 mmol/L (137-145) L 07/15/21 15:09 Potassium 5.7 mmol/L (3.6-5.0) H 07/15/21 15:09 Chloride 92.2 mmol/L (98-107) L 07/15/21 15:09 Carbon Dioxide 24 mmol/L (22-30) 07/15/21 15:09 Anion Gap 20 mmol/L 07/15/21 15:09 BUN 30 mg/dL (9-20) H 07/15/21 15:09 Creatinine 1.2 mg/dL (0.8-1.3) 07/15/21 15:09 Estimated GFR > 60 ml/min 07/15/21 15:09 BUN/Creatinine Ratio 25 % 07/15/21 15:09 Glucose 82 mg/dL (75-100) 07/15/21 15:09 POC Glucose 66 mg/dL (70-105) L 07/15/21 19:41 Lactic Acid 1.40 mmol/L (0.7-2.0) 07/15/21 19:35 Calcium 8.7 mg/dL (8.4-10.2) 07/15/21 15:09 Magnesium 2.40 mg/dL (1.7-2.3) H 07/15/21 15:09 Total Bilirubin 0.20 mg/dL (0.1-1.2) 07/15/21 15:09 AST 43 units/L (5-40) H 07/15/21 15:09 ALT 15 units/L (7-56) 07/15/21 15:09 Alkaline Phosphatase 77 units/L (35-129) 07/15/21 15:09 Total Protein 8.1 g/dL (6.3-8.2) 07/15/21 15:09 Albumin 3.1 g/dL (3.9-5) L 07/15/21 15:09 Albumin/Globulin Ratio 0.6 % 07/15/21 15:09 Lipase 27 units/L (13-60) 07/15/21 15:09 TSH 1.090 mlU/mL (0.270-4.200) 07/15/21 15:09 Free T4 0.98 ng/dL (0.76-1.46) 07/15/21 15:09 Urine Color Yellow (Yellow) 07/15/21 19:36 Urine Turbidity Clear (Clear) 07/15/21 19:36 Urine pH 6.0 (5.0-7.0) 07/15/21 19:36 Ur Specific [place] 1.010 (1.003-1.030) 07/15/21 19:36 Urine Protein 30 mg/dl mg/dL (Negative) 07/15/21 19:36 Urine Glucose (UA) Negative mg/dL (Negative) 07/15/21 19:36 Urine Ketones Negative mg/dL (Negative) 07/15/21 19:36 Urine Blood Negative (Negative) 07/15/21 19:36 Urine Nitrite Negative (Negative) 07/15/21 19:36 Ur Reducing Substances Not Reportable 07/15/21 19:36 Urine Bilirubin Negative (Negative) 07/15/21 19:36 Urine Ictotest Not Reportable 07/15/21 19:36 Urine Urobilinogen < 2.0 mg/dL (<2.0) 07/15/21 19:36 Ur Leukocyte Esterase Negative (Negative) 07/15/21 19:36 Urine WBC (Auto) 9.0 /HPF (0.0-6.0) H 07/15/21 19:36 Urine RBC (Auto) 3.0 /HPF (0.0-6.0) 07/15/21 19:36 Urine Mucus Few /HPF 07/15/21 19:36 Urine Opiates Screen Negative 07/15/21 19:36 Urine Methadone Screen Negative 07/15/21 19:36 Ur Barbiturates Screen Negative 07/15/21 19:36 Ur Phencyclidine Scrn Negative 07/15/21 19:36 Ur Amphetamines Screen Negative 07/15/21 19:36 U Benzodiazepines Scrn Negative 07/15/21 19:36 Urine Cocaine Screen Negative 07/15/21 19:36 U Marijuana (THC) Screen Negative 07/15/21 19:36 Drugs of Abuse Note Disclamer 07/15/21 19:36 Plasma/Serum Alcohol < 0.01 % (0-0.07) 07/15/21 15:09 - Imaging and Cardiology Chest x-ray: report reviewed Assessment and Plan VTE prophylaxis?: Chemical Plan of care discussed with patient/family: Yes - Patient Problems (1) Sepsis Current Visit: Yes Status: Acute Plan to address problem: Admit the patient to the medical floor. Oxygen per nasal cannula 3 L/min DuoNeb by nebulizer every 4 hours. D5 normal saline at the rate of 125 cc/h. Clindamycin 600 mg IV every 8 hours. We do the blood culture sputum culture. Patient needs outpatient follow-up with dentist. Recheck CBC BMP in the morning (2) Hyperkalemia Current Visit: Yes Status: Acute Plan to address problem: Kayexalate 60 g p.o. x1 dose. Calcium gluconate 1 g IV x1 dose. We will recheck the BMP in the morning (3) Tobacco abuse Current Visit: Yes Status: Acute Plan to address problem: Patient counseled regarding quitting smoking. Will put on nicotine patch if needed (4) Alcohol abuse Current Visit: Yes Status: Acute Plan to address problem: Patient counseled regarding quit drinking. We put the patient on banana bag daily. We also put the patient on thiamine folic acid (5) Dehydration Current Visit: Yes Status: Acute (6) Dental infection Current Visit: Yes Status: Acute (7) Sinus tachycardia Current Visit: Yes Status: Acute Plan to address problem: D5 normal saline at the rate of 125 cc per hour. Clindamycin 600 mg IV every 8 hours. We will monitor the heart rate closely. (8) DVT prophylaxis Current Visit: Yes Status: Acute Plan to address problem: Heparin 5000 units subcu every 12 hours for DVT prophylaxis. Pepcid 20 mg IV every 12 hours for GI prophylaxis. Patient is a full code
[2021-07-15] MEDS: CLINDAMYCIN 600 MG/50 mL 600 MG/50 ML BAG IV SCH (22:29)
[2021-07-15] MEDS ORDERED: THIAMINE 100 MG, FOLIC ACID 1 MG, MULTIPLE VITAMIN INJ, ADULT 10 ML in SODIUM CHLORIDE ... IV ONE (22:47)
[2021-07-15 23:10] LABS: BUN/Creatinine Ratio 20; Blood Urea Nitrogen 20 mg/dL (9-20); Calcium 7.4 mg/dL (8.4-10.2); Hemolysis Index 1
[2021-07-16] MEDS: IPRATROPIUM/ALBUTEROL SULFATE 3 ML AMPUL.NEB IH SCH ×3 (03:37→15:16)
[2021-07-16 06:07] LABS: BUN/Creatinine Ratio 19; Blood Urea Nitrogen 17 mg/dL (9-20); Calcium 7.8 mg/dL (8.4-10.2); Hemolysis Index 9
[2021-07-16 06:22] LABS: Basophils % (Auto) 0.6 % (0.0-1.8); Eosinophils # (Auto) 0.1 K/mm3 (0.0-0.4); Eosinophils % (Auto) 0.9 % (0.0-4.3); Hematocrit 30.7 % (35.5-45.6); Hemoglobin 9.8 gm/dl (11.8-15.2); Lymphocytes # (Auto) 1.2 K/mm3 (1.2-5.4); Lymphocytes % (Auto) 21.4 % (13.4-35.0); Mean Corpuscular HGB Conc 32 % (32-34); Mean Corpuscular Volume 94 fl (84-94); Monocytes # (Auto) 0.3 K/mm3 (0.0-0.8); Monocytes % (Auto) 5.2 % (0.0-7.3); Platelet Count 385 K/mm3 (140-440); Red Blood Count 3.29 M/mm3 (3.65-5.03); Red Cell Distribution Width 12.7 % (13.2-15.2)
--- NOTE | 2021-07-16 09:58 | Electrocardiograph Report ---
[facility] Test Date: 2021-07-15 Test Time: 16:11:30 Pat Name: MIHAI MCDERMOTT Department: Room: A384 1 Gender: M Datastage Developer: CEE : [id number] Requested By: NII HENRIQUEZ Order Number: [id number] Reading MD: Lennox Craig Measurements Intervals [place] Rate: 136 P: 0 TX: 142 QRS: -39 QRSD: 86 T: 14 QT: 274 QTc: 413 Interpretive Statements Sinus tachycardia Left axis deviation No previous ECG available for comparison Electronically Signed On 07-16-2021 9:57:56 EST by Lennox Craig
[2021-07-16] MEDS ORDERED: FAMOTIDINE 20 MG/2 ML INJ IV SCH (10:00)
[2021-07-16] MEDS: CLINDAMYCIN 600 MG/50 mL 600 MG/50 ML BAG IV SCH ×3 (10:05→21:20)
--- NOTE | 2021-07-16 10:27 | Progress Note ---
Assessment and Plan Assessment and plan: 51-year-old male with history of tobacco abuse and alcohol abuse was brought to the emergency room because of generalized weakness and difficulty ambulating for the past week and a half. Patient also complains of difficulty breathing secondary to nasal congestion . Patient also has poor dentition and tooth ache resulting in decreased p.o. intake. He also has some nausea and pain with p.o. intake and suspects he is dehydrated. He denies vomiting, fever, cough, chest congestion or shortness of breath. He also has a right red eye for the past 1 month and saw an bow maker custom 1 week ago but does not have a specific diagnosis. Patient states he stopped drinking 2 months ago and is not currently drinking alcohol. He is not currently taking any medications. EMS reports a blood glucose of 65 and a heart rate of 136 at his house prior to arrival In the emergency room patient is found to have fever of 102.9, BUN up 30 creatinine 1.2, lactic acid 1.40 potassium 5.7 chest x-ray shows no acute fin ding.Dehydration suspected given BUN to creatinine ratio. Despite aggressive IV fluid hydration patient remained tachycardic and subsequently developed a fever. Chest x-ray unremarkable. Patient's abdomen is nontender and soft. Patient does appear to have a dental infection. Patient has significant tachycardia out of proportion with fever. Thyroid is normal. Patient will be admitted to hospital service for further work-up and evaluation. (1) Sepsis with fever 102.9, hypotension, sinus tachycardia and lactic acid 2.3 Current Visit: Yes Status: Acute Plan to address problem: Etiology appears to be infected left lower gum/teeth, patient reports ongoing pains since several days. It does have decayed teeth UA shows 10 WBC, chest x-ray and shows no acute disease. Continue clindamycin 600 mg IV every 8 hours. Lactic acidosis resolved with IV fluids. BP remains soft with sinus tachycardia. Fever resolving. Blood culture sputum culture pending. Patient needs outpatient follow-up with dentist. (2) Hyperkalemia, unclear etiology Current Visit: Yes Status: Acute Plan to address problem: Kayexalate 60 g p.o. x1 dose. Calcium gluconate 1 g IV x1 dose. We will recheck the BMP in the morning (3) Tobacco abuse Current Visit: Yes Status: Acute Plan to address problem: Patient counseled regarding quitting smoking. Will put on nicotine patch if needed (4) Alcohol abuse Current Visit: Yes Status: Acute Plan to address problem: Patient counseled regarding quit drinking. We put the patient on banana bag daily. We also put the patient on thiamine folic acid (5) Dehydration with sepsis Current Visit: Yes Status: Acute IV fluids (6) Dental infection Current Visit: Yes Status: Acute (7) Sinus tachycardia Current Visit: Yes Status: Acute Plan to address problem: Likely related to sepsis , D5 normal saline at the rate of 125 cc per hour. Clindamycin 600 mg IV every 8 hours. We will monitor the heart rate closely. (8) DVT prophylaxis Current Visit: Yes Status: Acute Plan to address problem: Heparin 5000 units subcu every 12 hours for DVT prophylaxis. Pepcid 20 mg IV every 12 hours for GI prophylaxis. Patient is a full code Discussed with the patient. History Interval history: T-max 102.9 yesterday, fever seems to be resolving. BP soft and has significant sinus tachycardia. On clindamycin empirically. Patient reports that left lower jaw swelling and pain no better. Left face remain swollen. However he is able to eat his food. Does not appear toxic. He is alert, oriented and answers appropriately. Hospitalist Physical - Constitutional Vitals: Temp Pulse Resp BP Pulse Ox 98.9 F 117 H 16 118/69 96 07/16/21 09:51 07/16/21 09:51 07/16/21 09:51 07/16/21 09:51 07/16/21 09:51 General appearance: Present: mild distress, cachectic, disheveled, other (Not toxic appearing) - EENT Eyes: Present: PERRL, EOM intact ENT: other (Left mandibular painful swelling without fluctuation or erythema. No regional lymphadenopathy.) - Neck Neck: Present: supple - Respiratory Respiratory effort: normal Respiratory: bilateral: CTA - Cardiovascular Rhythm: other (Sinus tachycardia) - Extremities Extremities: No edema - Abdominal General gastrointestinal: soft, non-distended, normal bowel sounds - Integumentary Integumentary: Absent: rash - Psychiatric Psychiatric: appropriate mood/affect - Neurologic Neurologic: no focal deficits, moves all extremities, other (Alert, oriented, n ormal speech) Results - Labs CBC & Chem 7: 07/18/21 06:50 07/18/21 06:50 Labs: Laboratory Last Values WBC 5.7 K/mm3 (4.5-11.0) 02/09/22 04:46 RBC 3.29 M/mm3 (3.65-5.03) L 07/16/21 04:46 Hgb 9.8 gm/dl (11.8-15.2) L 07/16/21 04:46 Hct 30.7 % (35.5-45.6) L D 07/16/21 04:46 MCV 94 fl (84-94) 07/16/21 04:46 MCH 30 pg (28-32) 07/16/21 04:46 MCHC 32 % (32-34) 07/16/21 04:46 RDW 12.7 % (13.2-15.2) L 07/16/21 04:46 Plt Count 385 K/mm3 (140-440) 07/16/21 04:46 Lymph % (Auto) 21.4 % (13.4-35.0) 07/16/21 04:46 [place] % (Auto) 5.2 % (0.0-7.3) 07/16/21 04:46 Eos % (Auto) 0.9 % (0.0-4.3) 07/16/21 04:46 Baso % (Auto) 0.6 % (0.0-1.8) 07/16/21 04:46 Lymph # (Auto) 1.2 K/mm3 (1.2-5.4) 07/16/21 04:46 [place] # (Auto) 0.3 K/mm3 (0.0-0.8) 07/16/21 04:46 Eos # (Auto) 0.1 K/mm3 (0.0-0.4) 07/16/21 04:46 Baso # (Auto) 0.0 K/mm3 (0.0-0.1) 07/16/21 04:46 Seg Neutrophils % 71.9 % (40.0-70.0) H 07/16/21 04:46 Seg Neutrophils # 4.1 K/mm3 (1.8-7.7) 07/16/21 04:46 Sodium 130 mmol/L (137-145) L 07/16/21 04:46 Potassium 4.6 mmol/L (3.6-5.0) 07/16/21 04:46 Chloride 98.9 mmol/L (98-107) 07/16/21 04:46 Carbon Dioxide 22 mmol/L (22-30) 07/16/21 04:46 Anion Gap 14 mmol/L 07/16/21 04:46 BUN 17 mg/dL (9-20) 07/16/21 04:46 Creatinine 0.9 mg/dL (0.8-1.3) 07/16/21 04:46 Estimated GFR > 60 ml/min 07/16/21 04:46 BUN/Creatinine Ratio 19 % 07/16/21 04:46 Glucose 105 mg/dL (75-100) H 07/16/21 04:46 POC Glucose 129 mg/dL (70-105) H 07/15/21 22:34 Lactic Acid 2.30 mmol/L (0.7-2.0) H* 07/15/21 22:30 Calcium 7.8 mg/dL (8.4-10.2) L 07/16/21 04:46 Magnesium 2.40 mg/dL (1.7-2.3) H 07/15/21 15:09 Total Bilirubin 0.20 mg/dL (0.1-1.2) 07/15/21 15:09 AST 43 units/L (5-40) H 07/15/21 15:09 ALT 15 units/L (7-56) 07/15/21 15:09 Alkaline Phosphatase 77 units/L (35-129) 07/15/21 15:09 Total Protein 8.1 g/dL (6.3-8.2) 07/15/21 15:09 Albumin 3.1 g/dL (3.9-5) L 07/15/21 15:09 Albumin/Globulin Ratio 0.6 % 07/15/21 15:09 Lipase 27 units/L (13-60) 07/15/21 15:09 TSH 1.090 mlU/mL (0.270-4.200) 07/15/21 15:09 Free T4 0.98 ng/dL (0.76-1.46) 07/15/21 15:09 Urine Color Yellow (Yellow) 07/15/21 19:36 Urine Turbidity Clear (Clear) 07/15/21 19:36 Urine pH 6.0 (5.0-7.0) 07/15/21 19:36 Ur Specific [place] 1.010 (1.003-1.030) 07/15/21 19:36 Urine Protein 30 mg/dl mg/dL (Negative) 07/15/21 19:36 Urine Glucose (UA) Negative mg/dL (Negative) 07/15/21 19:36 Urine Ketones Negative mg/dL (Negative) 07/15/21 19:36 Urine Blood Negative (Negative) 07/15/21 19:36 Urine Nitrite Negative (Negative) 07/15/21 19:36 Ur Reducing Substances Not Reportable 07/15/21 19:36 Urine Bilirubin Negative (Negative) 07/15/21 19:36 Urine Ictotest Not Reportable 07/15/21 19:36 Urine Urobilinogen < 2.0 mg/dL (<2.0) 07/15/21 19:36 Ur Leukocyte Esterase Negative (Negative) 07/15/21 19:36 Urine WBC (Auto) 9.0 /HPF (0.0-6.0) H 07/15/21 19:36 Urine RBC (Auto) 3.0 /HPF (0.0-6.0) 07/15/21 19:36 Urine Mucus Few /HPF 07/15/21 19:36 Urine Opiates Screen Negative 07/15/21 19:36 Urine Methadone Screen Negative 07/15/21 19:36 Ur Barbiturates Screen Negative 07/15/21 19:36 Ur Phencyclidine Scrn Negative 07/15/21 19:36 Ur Amphetamines Screen Negative 07/15/21 19:36 U Benzodiazepines Scrn Negative 07/15/21 19:36 Urine Cocaine Screen Negative 07/15/21 19:36 U Marijuana (THC) Screen Negative 07/15/21 19:36 Drugs of Abuse Note Disclamer 07/15/21 19:36 Plasma/Serum Alcohol < 0.01 % (0-0.07) 07/15/21 15:09 Microbiology: Microbiology 07/15/21 19:35 Peripheral/Venous Blood Culture - Preliminary Culture in Progress 07/15/21 19:42 Peripheral/Venous Blood Culture - Preliminary Culture in Progress Active Medications - Current Medications Current Medications: Generic Name Dose Route Start Last Admin Trade Name Freq PRN Reason Stop Dose Admin Acetaminophen 650 mg 07/15/21 22:04 Acetaminophen 325 Mg Tab PO Q4H PRN Pain MILD(1-3)/Fever >100.5/NESBITT Hydrocodone Bitart/Acetaminophen 7.5 mg 07/16/21 10:26 Hydrocodone/Acetaminophen [id number] Oral Liqd PO Q6H PRN Pain, Moderate (4-6) Albuterol 2.5 mg 07/15/21 22:04 Albuterol 2.5 Mg/3 Ml Nebu IH Q3HRT PRN Shortness Of Breath Albuterol/Ipratropium 1 ampul 07/16/21 02:00 07/16/21 03:37 Ipratropium/Albuterol Sulfate 3 Ml Ampul.Neb IH 1 ampul Q6HRT ASHLEY Administration Famotidine 20 mg 07/16/21 10:00 Famotidine 20 Mg Tab PO BID [facility] Heparin Sodium (Porcine) 5,000 unit 07/16/21 10:00 Heparin 5,000 Unit/1 Ml Vial SUB-Q Q12HR [facility] Dextrose/Sodium Chloride 1,000 mls @ 125 mls/hr 07/15/21 23:00 D5ns IV DIRECT [facility] Clindamycin HCl 600 mg in 50 mls @ 100 mls/hr 07/15/21 23:00 07/15/21 22:29 Cleocin 600 Mg/50 Ml IV 100 mls/hr Q8HR ASHLEY Administration Protocol Ondansetron HCl 4 mg 07/15/21 22:04 Ondansetron 4 Mg/2 Ml Inj IV Q8H PRN Nausea And Vomiting Sodium Chloride 10 ml 07/16/21 10:00 Sodium Chloride 0.9% 10 Ml Flush Syringe IV BID ASHLEY Sodium Chloride 10 ml 07/15/21 22:04 Sodium Chloride 0.9% 10 Ml Flush Syringe IV PRN PRN LINE FLUSH
[2021-07-16] MEDS: FAMOTIDINE 20 MG TAB PO SCH ×2 (11:37→21:19)
[2021-07-16] MEDS: HEPARIN 5,000 UNIT/1 ML VIAL SUB-Q SCH ×2 (11:37→21:19)
[2021-07-16] MEDS ORDERED: SODIUM CHLORIDE 0.9% 100 ML IVPB IV SCH (14:00)
[2021-07-16] MEDS: HYDROcodone/Acetaminophen 7.5-325MG-15ML ORAL LIQD PO PRN (15:21)
[2021-07-16] MEDS: SODIUM CHLORIDE 0.9% 1000 ML 1,000 ML IV SCH (16:00)
[2021-07-17] MEDS: SODIUM CHLORIDE 0.9% 1000 ML 1,000 ML IV SCH (00:13)
[2021-07-17] MEDS: HYDROcodone/Acetaminophen 7.5-325MG-15ML ORAL LIQD PO PRN ×3 (00:14→19:05)
[2021-07-17] MEDS: CLINDAMYCIN 600 MG/50 mL 600 MG/50 ML BAG IV SCH ×2 (05:30→14:00)
[2021-07-17] MEDS: HEPARIN 5,000 UNIT/1 ML VIAL SUB-Q SCH ×2 (10:40→21:35)
[2021-07-17] MEDS: FAMOTIDINE 20 MG TAB PO SCH ×2 (10:40→21:36)
--- NOTE | 2021-07-17 10:53 | Electrocardiograph Report ---
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
[2021-07-17] MEDS ORDERED: SODIUM CHLORIDE 0.9% 1000 ML 2,000 ML IV ONE (19:58)
--- NOTE | 2021-07-17 20:41 | Progress Note ---
Assessment and Plan Assessment and plan: 51-year-old male with history of tobacco abuse and alcohol abuse was brought to the emergency room because of generalized weakness and difficulty ambulating for the past week and a half. Patient also complains of difficulty breathing secondary to nasal congestion . Patient also has poor dentition and tooth ache resulting in decreased p.o. intake. He also has some nausea and pain with p.o. intake and suspects he is dehydrated. He denies vomiting, fever, cough, chest congestion or shortness of breath. He also has a right red eye for the past 1 month and saw an can filling machine operator 1 week ago but does not have a specific diagnosis. Patient states he stopped drinking 2 months ago and is not currently drinking alcohol. He is not currently taking any medications. EMS reports a blood glucose of 65 and a heart rate of 136 at his house prior to arrival In the emergency room patient is found to have fever of 102.9, BUN up 30 creatinine 1.2, lactic acid 1.40 potassium 5.7 chest x-ray shows no acute fin ding.Dehydration suspected given BUN to creatinine ratio. Despite aggressive IV fluid hydration patient remained tachycardic and subsequently developed a fever. Chest x-ray unremarkable. Patient's abdomen is nontender and soft. Patient does appear to have a dental infection. Patient has significant tachycardia out of proportion with fever. Thyroid is normal. Patient will be admitted to hospital service for further work-up and evaluation. (1) Sepsis with fever 102.9, hypotension, sinus tachycardia and lactic acid 2.3 Current Visit: Yes Status: Acute Plan to address problem: Etiology appears to be infected left lower gum/teeth, patient reports ongoing pains since several days. It does have decayed teeth UA shows 10 WBC, chest x-ray and shows no acute disease. Serial WBC normal, l eft shift improving. Lactic acidosis resolved with IV fluids. Eventually, patient needs to see a dentist to address the root problem. T-max 102.9 at the time of admission, fever resolving. BP soft and has significant sinus tachycardia along with orthostasis for which 2 L of normal saline bolus ordered this afternoon. Clindamycin changed to meropenem due to urine cultures growing gram-negative rods and the patient hemodynamically unstable. Blood cultures negative to date. Patient reports that left lower jaw swelling and pain is no better. Left face remains swollen. However he is able to eat his food. Does not appear toxic. He is alert, oriented and answers appropriately. Will obtain CT face and consult ID. (2) Hyperkalemia, unclear etiology Current Visit: Yes Status: Acute Plan to address problem: Could be from hemolysis. Normal creatinine. Follow-up potassium normal. (3) Tobacco abuse Current Visit: Yes Status: Acute Plan to address problem: Patient counseled regarding quitting smoking. Will place him on nicotine patch if needed Patient has no obvious wheezing or dyspnea. May have some underlying COPD. (4) Alcohol abuse Current Visit: Yes Status: Acute Plan to address problem: Patient counseled regarding quit drinking. Placed on banana bag daily. We also put the patient on thiamine folic acid Patient reports that he drinks 1 beer daily, not clear if this is accurate (5) Dehydration with sepsis Current Visit: Yes Status: Acute IV fluids (6) Dental infection Current Visit: Yes Status: Acute (7) Sinus tachycardia Current Visit: Yes Status: Acute Plan to address problem: Likely related to sepsis , D5 normal saline at the rate of 125 cc per hour. Clindamycin 600 mg IV every 8 hours. We will monitor the heart rate closely. (8) DVT prophylaxis Current Visit: Yes Status: Acute Plan to address problem: Heparin 5000 units subcu every 12 hours for DVT prophylaxis. Pepcid 20 mg IV every 12 hours for GI prophylaxis. Patient is a full code Discussed with the patient. History Interval history: T-max 102.9 at the time of admission, fever resolving. BP soft and has significant sinus tachycardia along with orthostasis for which 2 L of normal saline bolus ordered this afternoon. Clindamycin changed to meropenem due to urine cultures growing gram-negative rods and the patient hemodynamically unstable. Blood cultures negative to date. Patient reports that left lower jaw swelling and pain is no better. Left face remain swollen. However he is able to eat his food. Does not appear toxic. He is alert, oriented and answers appropriately. Hospitalist Physical - Constitutional Vitals: Temp Pulse Resp BP Pulse Ox 99.2 F 143 H 18 127/85 96 07/17/21 17:27 07/17/21 17:27 07/17/21 17:27 07/17/21 17:07/17/21 20:00 General appearance: Present: mild distress, cachectic, disheveled, other (Not toxic appearing) - EENT Eyes: Present: PERRL, EOM intact ENT: other (Left facial swelling present. Pharynx unremarkable. Decayed teeth noted. Tender left mandibular swelling without erythema or edema present. No regional lymph nodes. Ferritin are normal.) - Neck Neck: Present: supple, other (No regional adenopathy.) - Respiratory Respiratory effort: normal Respiratory: bilateral: CTA - Cardiovascular Rhythm: other (Sinus tachycardia) - Extremities Extremities: No edema - Abdominal General gastrointestinal: soft, non-tender, normal bowel sounds - Integumentary Integumentary: Absent: rash - Psychiatric Psychiatric: appropriate mood/affect - Neurologic Neurologic: no focal deficits, moves all extremities Results - Labs CBC & Chem 7: 07/18/21 06:50 07/18/21 06:50 Labs: Laboratory Last Values WBC 5.7 K/mm3 (4.5-11.0) 07/16/21 04:46 RBC 3.29 M/mm3 (3.65-5.03) L 07/16/21 04:46 Hgb 9.8 gm/dl (11.8-15.2) L 07/16/21 04:46 Hct 30.7 % (35.5-45.6) L D 07/16/21 04:46 MCV 94 fl (84-94) 07/16/21 04:46 MCH 30 pg (28-32) 07/16/21 04:46 MCHC 32 % (32-34) 07/16/21 04:46 RDW 12.7 % (13.2-15.2) L 07/16/21 04:46 Plt Count 385 K/mm3 (140-440) 07/16/21 04:46 Lymph % (Auto) 21.4 % (13.4-35.0) 07/16/21 04:46 [place] % (Auto) 5.2 % (0.0-7.3) 07/16/21 04:46 Eos % (Auto) 0.9 % (0.0-4.3) 07/16/21 04:46 Baso % (Auto) 0.6 % (0.0-1.8) 07/16/21 04:46 Lymph # (Auto) 1.2 K/mm3 (1.2-5.4) 07/16/21 04:46 [place] # (Auto) 0.3 K/mm3 (0.0-0.8) 07/16/21 04:46 Eos # (Auto) 0.1 K/mm3 (0.0-0.4) 07/16/21 04:46 Baso # (Auto) 0.0 K/mm3 (0.0-0.1) 07/16/21 04:46 Seg Neutrophils % 71.9 % (40.0-70.0) H 07/16/21 04:46 Seg Neutrophils # 4.1 K/mm3 (1.8-7.7) 07/16/21 04:46 Sodium 130 mmol/L (137-145) L 07/16/21 04:46 Potassium 4.6 mmol/L (3.6-5.0) 07/16/21 04:46 Chloride 98.9 mmol/L (98-107) 07/16/21 04:46 Carbon Dioxide 22 mmol/L (22-30) 07/16/21 04:46 Anion Gap 14 mmol/L 07/16/21 04:46 BUN 17 mg/dL (9-20) 07/16/21 04:46 Creatinine 0.9 mg/dL (0.8-1.3) 07/16/21 04:46 Estimated GFR > 60 ml/min 07/16/21 04:46 BUN/Creatinine Ratio 19 % 07/16/21 04:46 Glucose 105 mg/dL (75-100) H 07/16/21 04:46 POC Glucose 113 mg/dL (70-105) H 07/16/21 10:57 Lactic Acid 2.30 mmol/L (0.7-2.0) H* 07/15/21 22:30 Calcium 7.8 mg/dL (8.4-10.2) L 07/16/21 04:46 Magnesium 2.40 mg/dL (1.7-2.3) H 07/15/21 15:09 Total Bilirubin 0.20 mg/dL (0.1-1.2) 07/15/21 15:09 AST 43 units/L (5-40) H 07/15/21 15:09 ALT 15 units/L (7-56) 07/15/21 15:09 Alkaline Phosphatase 77 units/L (35-129) 07/15/21 15:09 Total Protein 8.1 g/dL (6.3-8.2) 07/15/21 15:09 Albumin 3.1 g/dL (3.9-5) L 07/15/21 15:09 Albumin/Globulin Ratio 0.6 % 07/15/21 15:09 Lipase 27 units/L (13-60) 07/15/21 15:09 TSH 1.090 mlU/mL (0.270-4.200) 07/15/21 15:09 Free T4 0.98 ng/dL (0.76-1.46) 07/15/21 15:09 Urine Color Yellow (Yellow) 07/15/21 19:36 Urine Turbidity Clear (Clear) 07/15/21 19:36 Urine pH 6.0 (5.0-7.0) 07/15/21 19:36 Ur Specific [place] 1.010 (1.003-1.030) 07/15/21 19:36 Urine Protein 30 mg/dl mg/dL (Negative) 07/15/21 19:36 Urine Glucose (UA) Negative mg/dL (Negative) 07/15/21 19:36 Urine Ketones Negative mg/dL (Negative) 07/15/21 19:36 Urine Blood Negative (Negative) 07/15/21 19:36 Urine Nitrite Negative (Negative) 07/15/21 19:36 Ur Reducing Substances Not Reportable 07/15/21 19:36 Urine Bilirubin Negative (Negative) 07/15/21 19:36 Urine Ictotest Not Reportable 07/15/21 19:36 Urine Urobilinogen < 2.0 mg/dL (<2.0) 07/15/21 19:36 Ur Leukocyte Esterase Negative (Negative) 07/15/21 19:36 Urine WBC (Auto) 9.0 /HPF (0.0-6.0) H 07/15/21 19:36 Urine RBC (Auto) 3.0 /HPF (0.0-6.0) 07/15/21 19:36 Urine Mucus Few /HPF 07/15/21 19:36 Urine Opiates Screen Negative 07/15/21 19:36 Urine Methadone Screen Negative 07/15/21 19:36 Ur Barbiturates Screen Negative 07/15/21 19:36 Ur Phencyclidine Scrn Negative 07/15/21 19:36 Ur Amphetamines Screen Negative 07/15/21 19:36 U Benzodiazepines Scrn Negative 07/15/21 19:36 Urine Cocaine Screen Negative 07/15/21 19:36 U Marijuana (THC) Screen Negative 07/15/21 19:36 Drugs of Abuse Note Disclamer 07/15/21 19:36 Plasma/Serum Alcohol < 0.01 % (0-0.07) 07/15/21 15:09 Microbiology: Microbiology 07/15/21 19:36 Urine,Clean Catch Urine Culture - Preliminary Gram Negative Ihsan 07/15/21 19:35 Peripheral/Venous Blood Culture - Preliminary NO GROWTH AFTER 24 HOURS 07/15/21 19:42 Peripheral/Venous Blood Culture - Preliminary NO GROWTH AFTER 24 HOURS Ortiz/IV: Voiding Method Toilet Active Medications - Current Medications Current Medications: Generic Name Dose Route Start Last Admin Trade Name Freq PRN Reason Stop Dose Admin Acetaminophen 650 mg 07/15/21 22:04 07/17/21 00:20 Acetaminophen 325 Mg Tab PO 650 mg Q4H PRN Administration Pain MILD(1-3)/Fever >100.5/[place] Hydrocodone Bitart/Acetaminophen 7.5 mg 07/16/21 10:26 07/17/21 19:05 Hydrocodone/Acetaminophen [id number] Oral Liqd PO 7.5 mg Q6H PRN Administration Pain, Moderate (4-6) Albuterol 2.5 mg 07/15/21 22:04 Albuterol 2.5 Mg/3 Ml Nebu IH Q3HRT PRN Shortness Of Breath Famotidine 20 mg 07/16/21 10:00 07/17/21 10:40 Famotidine 20 Mg Tab PO 20 mg BID ASHLEY Administration Heparin Sodium (Porcine) 5,000 unit 07/16/21 10:00 07/17/21 10:40 Heparin 5,000 Unit/1 Ml Vial SUB-Q 5,000 unit Q12HR ASHLEY Administration Clindamycin HCl 600 mg in 50 mls @ 100 mls/hr 07/15/21 23:00 07/17/21 14:00 Cleocin 600 Mg/50 Ml IV 100 mls/hr Q8HR ASHLEY Administration Protocol Sodium Chloride 1,000 mls @ 150 mls/hr 07/16/21 14:15 07/17/21 00:13 Nacl 0.9% 1000 Ml IV 07/17/21 20:54 150 mls/hr DIRECT ASHLEY Administration Sodium Chloride 2,000 mls @ 999 mls/hr 07/17/21 19:58 Nacl 0.9% 1000 Ml IV 07/17/21 21:58 BOLUS ONE Ondansetron HCl 4 mg 07/15/21 22:04 07/17/21 00:14 Ondansetron 4 Mg/2 Ml Inj IV 4 mg Q8H PRN Administration Nausea And Vomiting Sodium Chloride 10 ml 07/16/21 10:00 07/17/21 10:40 Sodium Chloride 0.9% 10 Ml Flush Syringe IV 10 ml BID ASHLEY Administration Sodium Chloride 10 ml 07/15/21 22:04 Sodium Chloride 0.9% 10 Ml Flush Syringe IV PRN PRN LINE FLUSH
[2021-07-17] MEDS: MEROPENEM/NS 500 MG/50 ML 500 MG/50 ML BAG IV SCH (22:37)
[2021-07-18] MEDS: MEROPENEM/NS 500 MG/50 ML 500 MG/50 ML BAG IV SCH (03:11)
[2021-07-18 07:55] LABS: Basophils % (Auto) 0.7 % (0.0-1.8); Eosinophils % (Auto) 0.6 % (0.0-4.3); Hematocrit 31.4 % (35.5-45.6); Hemoglobin 9.9 gm/dl (11.8-15.2); Lymphocytes # (Auto) 1.6 K/mm3 (1.2-5.4); Lymphocytes % (Auto) 28.5 % (13.4-35.0); Mean Corpuscular HGB Conc 31 % (32-34); Mean Corpuscular Volume 93 fl (84-94); Monocytes # (Auto) 0.2 K/mm3 (0.0-0.8); Monocytes % (Auto) 3.5 % (0.0-7.3); Platelet Count 426 K/mm3 (140-440); Red Cell Distribution Width 12.8 % (13.2-15.2)
[2021-07-18 08:18] LABS: Alanine Aminotransferase 14 units/L (7-56); Albumin 2.7 g/dL (3.9-5); BUN/Creatinine Ratio 10; Blood Urea Nitrogen 9 mg/dL (9-20); Calcium 7.8 mg/dL (8.4-10.2); Hemolysis Index 7
--- NOTE | 2021-07-18 10:01 | Electrocardiograph Report ---
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
--- NOTE | 2021-07-18 10:44 | Cat Scan Report ---
CONTRAST ENHANCED CT SCAN OF THE FACIAL MAXILLARY REGION: HISTORY: Swelling in the left face; sepsis COMPARISON: None. TECHNIQUE: Axial images of the face were obtained. Coronal and sagittal reformats were generated.All CT scans at this location are performed using CT dose reduction for ALARA by means of automated expo sure control CONTRAST: 100 mL of Omnipaque 300 FINDINGS: Facial bones: Mandible: Sclerotic medullary cavity of the mandible on the left side; soft tissue swelling on the bu ccal side; no abscess formation yet; CT findings consistent with phlegmon at this level; torus mandib ularis; dental caries and root abscess around tooth #20 Maxilla: Sclerotic changes in the medullary cavity of both maxilla; root abscess around tooth number 3; Periosteal reaction bilaterally on the buccal side; Paranasal sinuses: Maxillary sinuses: Left maxillary sinus is completely opacified; bony wall not thickened; minimal muc osal thickening in the right maxillary sinus Ethmoid air cells: Opacified ethmoid air cells in anteriorly on the left side Sphenoid sinuses: Rudimentary; mucosal thickening Procedures: Left frontal sinus is opacified Nasal cavity: Median nasal septum: Dehiscence in the midportion Chemical (opioids) or trauma (could be postsurgical ) and chronic inflammation (granulomatosis with polyangiitis) Turbinates: No focal lesion Left middle meatus and hiatus semilunaris area opacified Orbits: No significant abnormality. Visualized images of the intracranial space: No significant abnormality. Additional findings: None. IMPRESSION: 1. Chronic changes in the medullary cavity of mandible and maxilla; chronic periosteal reaction yue und the maxilla bilaterally the buccal side bilaterally; soft tissue thickening on the buccal side at the mandibular level; appears to be phlegmon; no abscess formation Significant mucosal disease in the left maxillary sinus, anterior ethmoid air cells and left frontal sinus; left middle meatus and hiatus semilunaris are opacified Signer Name: Ant Bartlett MD Signed: 07/18/2021 10:39 AM Workstation Name: [id number]
[2021-07-18] MEDS: FAMOTIDINE 20 MG TAB PO SCH ×2 (11:49→22:36)
[2021-07-18] MEDS: HEPARIN 5,000 UNIT/1 ML VIAL SUB-Q SCH ×2 (11:50→22:35)
--- NOTE | 2021-07-18 12:15 | Consultation ---
History of Present Illness - Reason for Consult Consult date: 07/18/21 sepsis Requesting physician: SALOMON HERNDON - History of Present Illness The patient is a 51-year-old male with tobacco use, alcohol abuse admitted with generalized weakness and difficulty breathing. Upon evaluation in the ER, fever of 102.9 F, afebrile since then. Appears dehydrated, also noted to have poor dentition. Was started on clindamycin. CT face revealed sclerotic changes in the medullary cavity of both maxilla, root abscess noted around tooth #3, sinusitis. Chest x-ray without pneumonia. Denies any urinary complaints. Review of Systems: Per HPI Past History Past Medical History: other (Tobacco abuse alcohol abuse) Medications and Allergies Allergies Allergy/AdvReac Type Severity Reaction Status Date / Time No Known Allergies Allergy Verified 07/16/21 12:41 Home Medications Medication Instructions Recorded Confirmed Last Taken Type No Known Home Medications [No 07/16/21 07/16/21 Unknown History Reported Home Medications] Active Meds: Active Medications Acetaminophen (Acetaminophen 325 Mg Tab) 650 mg PO Q4H PRN PRN Reason: Pain MILD(1-3)/Fever >100.5/NESBITT Last Admin: 07/17/21 00:20 Dose: 650 mg Hydrocodone Bitart/Acetaminophen (Hydrocodone/Acetaminophen [id number] Oral Liqd) 7.5 mg PO Q6H PRN PRN Reason: Pain, Moderate (4-6) Last Admin: 07/17/21 19:05 Dose: 7.5 mg Albuterol (Albuterol 2.5 Mg/3 Ml Nebu) 2.5 mg IH Q3HRT PRN PRN Reason: Shortness Of Breath Famotidine (Famotidine 20 Mg Tab) 20 mg PO BID [facility] Last Admin: 07/17/21 21:36 Dose: 20 mg Heparin Sodium (Porcine) (Heparin 5,000 Unit/1 Ml Vial) 5,000 unit SUB-Q Q12HR [facility] Last Admin: 07/17/21 21:35 Dose: 5,000 unit Meropenem (Merrem/Ns 500 Mg/50 Ml) 500 mg in 50 mls @ 50 mls/hr IV Q6H [facility] Last Admin: 07/18/21 03:11 Dose: 50 mls/hr Ondansetron HCl (Ondansetron 4 Mg/2 Ml Inj) 4 mg IV Q8H PRN PRN Reason: Nausea And Vomiting Last Admin: 07/17/21 00:14 Dose: 4 mg Sodium Chloride (Sodium Chloride 0.9% 10 Ml Flush Syringe) 10 ml IV BID ASHLEY Last Admin: 07/18/21 00:17 Dose: Not Given Sodium Chloride (Sodium Chloride 0.9% 10 Ml Flush Syringe) 10 ml IV PRN PRN PRN Reason: LINE FLUSH Physical Examination - Physical Exam Narrative exam: Physical Exam: Constitutional: Alert, cooperative. No acute distress Head, Ears, Nose: Normocephalic, atraumatic. External ears, nose normal. Left- sided mandibular tenderness present Eyes: Conjunctivae/corneas clear. No icterus. No ptosis. Neck: Supple, no meningeal signs Oral: Poor dentition, multiple decayed teeth. Cardiovascular: S1, S2 + Respiratory: Good air entry, clear to auscultation bilaterally GI: Soft, non-tender; bowel sounds normal. No peritoneal signs Musculoskeletal: No pedal edema, no cyanosis. Skin: No rash or abscess Hem/Lymphatic: No palpable cervical or supraclavicular nodes. No lymphangitis Psych: Mood ok. Affect normal Neurological: Awake, alert, oriented. No gross abnormality - Constitutional Vitals: Vital Signs Temp Pulse Resp BP Pulse Ox 98.5 F 144 H 18 101/56 95 07/18/21 04:37 07/18/21 04:37 07/18/21 04:37 07/18/21 04:37 07/18/21 04:37 Temperature -Last 24 Hours Temperature 98.5 F Temperature 98.7 F Temperature 99.2 F Results - Labs CBC & Chem 7: 07/18/21 06:50 07/18/21 06:50 Labs: Abnormal lab results 07/18/21 07/18/21 Range/Units 06:50 06:50 RBC 3.40 L (3.65-5.03) M/mm3 Hgb 9.9 L (11.8-15.2) gm/dl Hct 31.4 L (35.5-45.6) % MCHC 31 L (32-34) % RDW 12.8 L (13.2-15.2) % Sodium 132 L (137-145) mmol/L Chloride 97.3 L (98-107) mmol/L Calcium 7.8 L (8.4-10.2) mg/dL AST 42 H (5-40) units/L Albumin 2.7 L (3.9-5) g/dL - Imaging and Cardiology Chest x-ray: report reviewed, image reviewed (no pneumonia) Assessment and Plan Cultures: 07/15/2021 blood culture: No growth 07/15/2021 urine culture: [id number] GNR A/P: 51-year-old male with tobacco use, alcohol abuse with: #Fever, secondary to periapical/dental abscess #UTI versus contaminant: Asymptomatic. UA showed minimal pyuria. Recs: PO Augmentin 875 mg twice daily x 7 days Needs outpatient dental follow-up Smoking cessation Alcohol cessation Will sign off. Please call with questions Flash Gonzalez MD, FACPCL[facility] O: [phone] F: [phone]
[2021-07-18] MEDS: AMOXICILLIN/K CLAV 875/125MG TAB PO SCH ×2 (13:50→22:35)
--- NOTE | 2021-07-18 18:34 | Discharge Summary ---
Providers - Providers Date of Admission: 07/15/21 22:04 Date of discharge: 07/18/21 Attending physician: ELLY HERNDON MD 07/17/21 20:45 Consult to Physician [CONS] Routine Comment: Consulting Provider: WARNER BOLANOS Physician Instructions: Reason For Exam: Sepsis 07/18/21 09:03 Physical Therapy Evaluation and Treat [CONS] Stat Comment: Eval and Treat Reason For Exam: Physical Therapy Primary care physician: INTEGRATION SOFTWARE ENGINEER Hospitalization Condition: Stable Hospital course: Hospital course: 48-year-old -[place] male with PMH of tobacco and alcohol use which he recently quit. Patient has ongoing right eye problem for which is being evaluated at [facility] and is scheduled for MRI. He also has head/nasal congestion. He has been experiencing left lower jaw pain and swelling since several days and presented to ED with fever, malaise, generalized weakness and dehydration. In ED had a fever of 102.9, borderline BP and severe sinus tachycardia up to 140. Lactic acid 2.3 however no leukocytosis. Chest x-ray unremarkable. Patient did not have dysuria but UA showed 10 WBC. Patient was admitted and given IV fluids for dehydration. Started empirically on clindamycin. CT face revealed sclerotic changes in the medullary cavity of both maxilla, root abscess noted around tooth #3, blood cultures were negative. Urine cultures grew Klebsiella pansensitive. Patient was evaluated by ID and felt that UTI may not be treated in particular as asymptomatic and this could be contamination. He recommended discharging patient on Augmentin for 7 days and a follow-up with a dentist for tooth infection/abscess. Patient was discharged in stable condition for outpatient follow-up. Discharge diagnosis Tooth/gum infection, possible root canal abscess Sinusitis Severe dehydration with sinus tachycardia Ongoing pink eye, right being evaluated at [facility], scheduled for MRI 51-year-old male with history of tobacco abuse and alcohol abuse was brought to the emergency room because of generalized weakness and difficulty ambulating for the past week and a half. Patient also complains of difficulty breathing secondary to nasal congestion . Patient also has poor dentition and tooth ache resulting in decreased p.o. intake. He also has some nausea and pain with p.o. intake and suspects he is dehydrated. He denies vomiting, fever, cough, chest congestion or shortness of breath. He also has a right red eye for the past 1 month and saw an motion picture operator 1 week ago but does not have a specific diagnosis. Patient states he stopped drinking 2 months ago and is not currently drinking alcohol. He is not currently taking any medications. EMS reports a blood glucose of 65 and a heart rate of 136 at his house prior to arrival In the emergency room patient is found to have fever of 102.9, BUN up 30 creatinine 1.2, lactic acid 1.40 potassium 5.7 chest x-ray shows no acute finding.Dehydration suspected given BUN to creatinine ratio. Despite aggressive IV fluid hydration patient remained tachycardic and subsequently developed a fever. Chest x-ray unremarkable. Patient's abdomen is nontender and soft. Patient does appear to have a dental infection. Patient has significant tachycardia out of proportion with fever. Thyroid is normal. Patient will be admitted to hospital service for further work-up and evaluation. (1) Sepsis with fever 102.9, hypotension, sinus tachycardia and lactic acid 2.3 Current Visit: Yes Status: Acute Plan to address problem: Etiology appears to be infected left lower gum/teeth, patient reports ongoing pains since several days. It does have decayed teeth UA shows 10 WBC, chest x-ray and shows no acute disease. Serial WBC normal, left shift improving. Lactic acidosis resolved with IV fluids. Eventually, patient needs to see a dentist to address the root problem. T-max 102.9 at the time of admission, fever resolving. BP soft and has significant sinus tachycardia along with orthostasis for which 2 L of normal saline bolus ordered this afternoon. Clindamycin changed to meropenem due to urine cultures growing gram-negative rods and the patient hemodynamically unstable. Blood cultures negative to date. Patient reports that left lower jaw swelling and pain is no better. Left face remains swollen. However he is able to eat his food. Does not appear toxic. He is alert, oriented and answers appropriately. Will obtain CT face and consult ID. (2) Hyperkalemia, unclear etiology Current Visit: Yes Status: Acute Plan to address problem: Could be from hemolysis. Normal creatinine. Follow-up potassium normal. (3) Tobacco abuse Current Visit: Yes Status: Acute Plan to address problem: Patient counseled regarding quitting smoking. Will place him on nicotine patch if needed Patient has no obvious wheezing or dyspnea. May have some underlying COPD. (4) Alcohol abuse Current Visit: Yes Status: Acute Plan to address problem: Patient counseled regarding quit drinking. Placed on banana bag daily. We also put the patient on thiamine folic acid Patient reports that he drinks 1 beer daily, not clear if this is accurate (5) Dehydration with sepsis Current Visit: Yes Status: Acute IV fluids (6) Dental infection Current Visit: Yes Status: Acute (7) Sinus tachycardia Current Visit: Yes Status: Acute Plan to address problem: Likely related to sepsis , D5 normal saline at the rate of 125 cc per hour. Clindamycin 600 mg IV every 8 hours. We will monitor the heart rate closely. Disposition: 01 HOME / SELF CARE / HOMELESS Final Discharge Diagnosis (Prints w/discharge instructions): Tooth/gum infection, possible root canal abscess. Sinusitis. Severe dehydration with sinus tachycardia. Ongoing pink eye, right being evaluated at [facility], scheduled for MRI Time spent for discharge: 35 minutes Core Measure Documentation - Palliative Care Palliative Care/ Comfort Measures: Not Applicable - Core Measures Any of the following diagnoses?: none Exam - Constitutional Vitals: Temp Pulse Resp BP Pulse Ox 98.2 F 108 H 18 98/71 99 07/18/21 17:25 07/18/21 17:25 07/18/21 17:25 07/18/21 17:25 07/18/21 17:25 General appearance: Present: no acute distress, disheveled - EENT ENT: other (Left mandibular pain with swelling without edema/erythema or lymphadenopathy. Sinus/nasal congestion noted.) - Respiratory Respiratory effort: normal Respiratory: bilateral: CTA - Cardiovascular Rhythm: regular - Extremities Extremities: No edema - Abdominal General gastrointestinal: Present: soft, non-tender, non-distended, normal bowel sounds - Integumentary Integumentary: Absent: rash - Musculoskeletal Musculoskeletal: strength equal bilaterally - Neurologic Neurologic: no focal deficits, moves all extremities Plan Activity: advance as tolerated Diet: regular Additional Instructions: You need to see a dentist in 1 week for the tooth infection Follow up with: PRIMARY CARE, [Primary Care Provider] - 3-5 Days Prescriptions: Amoxicillin/K Clav Tab [Augmentin 875MG TAB] 1 each PO Q12HR #20 tablet Ibuprofen [Motrin 800 MG tab] 800 mg PO Q8HR PRN #30 tablet PRN Reason: pain HYDROcodone/Acetaminop 7.5-325 [[place] 7.5-325 mg per 15 ML] 7.5 mg PO Q6H PRN #15 bag PRN Reason: Pain, Moderate (4-6)
[2021-07-18] MEDS: HYDROcodone/Acetaminophen 7.5-325MG-15ML ORAL LIQD PO PRN (18:45)
[2021-07-18] MEDS: POLYETHYLENE GLYCOL 3350 17 GM POWDER PO SCH (22:36)
[2021-07-19 05:04] VITALS: BP 117/81
[2021-07-19] MEDS: HYDROcodone/Acetaminophen 7.5-325MG-15ML ORAL LIQD PO PRN ×2 (05:07→11:01)
[2021-07-19] MEDS: FAMOTIDINE 20 MG TAB PO SCH (10:02)
[2021-07-19] MEDS: AMOXICILLIN/K CLAV 875/125MG TAB PO SCH (10:02)
[2021-07-19] MEDS: POLYETHYLENE GLYCOL 3350 17 GM POWDER PO SCH (10:19)
[2021-07-19] MEDS: HEPARIN 5,000 UNIT/1 ML VIAL SUB-Q SCH (10:19)
--- NOTE | 2021-07-19 16:42 | Event Note ---
Date: 07/19/21 Patient was discharged yesterday but could not leave and as his right did not come to pick him. Nursing staff notified this to house administrative office assistant. Patient stayed overnight and left leg. No other issues or events reported. Patient was not seen by me today.
== END 2021-07-19 12:09 | disposition home or self-care (01) | DRG 872 ==
LOC: ED 13:25 → 3A 22:04
PROVIDERS: ADMIT Hospitalist; ATTEND Internal Medicine
DX: A41.9 Sepsis, unspecified organism (principal); N39.0 Urinary tract infection, site not specified; R00.0 Tachycardia, unspecified; E86.0 Dehydration; E87.5 Hyperkalemia; F10.10 Alcohol abuse, uncomplicated; K04.7 Periapical abscess without sinus
CPT/HCPCS: 36415; 70487; 71045; 80048; 80053; 80307; 80320; 81001; 82140; 82962; 83690; 83735; 83880; 84439; 84443; 85025; 87040; 87076; 87086; 87186; 93005; 93010; 93306; G0378; J3490; J7502; Q0162; C8929; G0480; J1644; J2185; J2405; J3411; J7030; J7042; Q9967